=== PATIENT | female | born 1985 | race Caucasian/White ===

== ENCOUNTER 2016-12-04 09:39 | Emergency (ER) | payer OTHER ==
[~2016-12-04] VITALS: Ht 162.6 cm; Wt 77.3 kg
[~2016-12-04 09:39] MED LIST: CITA10TA8 PO; DOXY100C76 PO; POLY335019 PO
[2016-12-04 09:47] VITALS: TEMP 36.3; Ht 162.6 cm; Wt 77.3 kg
[2016-12-04] MEDS ORDERED: RANI150T3 PO (10:01)
[2016-12-04] MEDS ORDERED: KETOROLAC TROMETHAMINE 30 MG/ML VIAL IV STA (10:15)
[2016-12-04] MEDS ORDERED: SODIUM CHLORIDE 0.9% 1000ML 1,000 ML IV STA ×2 (10:15→10:53)
[2016-12-04] MEDS ORDERED: ONDANSETRON INJ 2 MG/ML 2 ML VIAL IV STA (10:15)
[2016-12-04 10:27] LABS: BASO % 0.5 %; BASO ABS # 0.05 K/uL (0-0.2); COMPLETE YES; EOS % 0.3 %; HEMATOCRIT 43.3 % (37-47); IG% 0.3 %; LYMPH % 19.3 %; LYMPH ABS # 1.76 K/uL (1.2-3.4); MEAN CELL VOLUME 96.7 fL (80-100); MEAN CORPUSCULAR HEMOGLOBIN 31.3 pg (25-34); MEAN CORPUSCULAR HGB CONC 32.3 g/dl (32-36); MEAN PLATELET VOLUME 8.7 fL (7.4-10.4); MONO % 4.5 %; NEUT % 75.1 %; PLATELET COUNT 300 K/uL (130-400); RED BLOOD COUNT 4.48 M/uL (4.2-5.4); WHITE BLOOD COUNT 9.13 K/uL (4.8-10.8)
[2016-12-04 10:45] LABS: BUN/CREATININE RATIO 19.7 (10-20); CALCIUM 8.5 mg/dl (8.5-10.1); CREATININE 0.8 mg/dl (0.60-1.20); POTASSIUM 3.4 mmol/L (3.5-5.1)
[2016-12-04 11:22] VITALS: BP 117/65; PULSE 85; O2SAT 100
[2016-12-04] MEDS ORDERED: ONDA4TAB10 SL (11:42)
--- NOTE | 2016-12-04 11:43 | EMERGENCY ROOM VISIT NOTE ---
History First contact with patient: 10:10 Chief Complaint: FLU LIKE SX Stated Complaint: FLU LIKE SYMPTOMS, THROWING UP, HOT & COLD SWEATS History of Present Illness The patient is a 31 year old female who presents to the Emergency Room with complaints of abdominal pain, nausea vomiting and diarrhea. The patient states she woke up this morning at 6 AM with generalized abdominal pain nausea vomiting and has had 3 loose bowel movements. The patient states she is diaphoretic but did not take her temperature. The patient denies any chest pain or shortness of breath. The patient admits that yesterday she was out in the sun all day at a water park and did not stay hydrated. Then last evening she came home and drank a significant amount of alcohol. The patient denies any urinary symptoms of frequency, urgency, dysuria or hematuria. The patient denies any back or flank pain. Review of Systems 10 system review was performed and was negative unless stated otherwise history of present illness. Past Medical/Surgical History Surgical Problems: (1) S/P tubal ligation Family History Hypertension Seizures Social History Smoking Status: Never Smoker Alcohol Use: occasionally Marital Status: Housing Status: lives with family Occupation Status: unemployed Current/Historical Medications Scheduled Citalopram Hydrobromide (Celexa), 10 MG PO DAILY Ranitidine Hcl (Zantac), 150 MG PO DAILY Allergies Coded Allergies: Nickel (Unverified Allergy, Unknown, RASH, 12/04/16) Physical Exam Vital Signs Date Time Temp Pulse Resp B/P (MAP) Pulse Ox O2 Delivery O2 Flow Rate FiO2 12/04/16 11:22 85 18 117/65 100 Room Air 12/04/16 09:47 36.3 69 18 123/81 100 Room Air Physical Exam GENERAL: 31-year-old white female appears in no acute distress. MENTAL Status: Alert and oriented 3. EYES: No icterus noted MOUTH: Mucosa is slightly dry. NECK: Supple, no lymphadenopathy noted. No carotid bruits noted. LUNGS: Clear auscultation without wheezes rales or rhonchi. CARDIAC: Regular rate and rhythm without murmur. Pulses is full and equal throughout. BACK: No CVA tenderness noted. ABDOMEN: Positive bowel sounds all 4 quadrants. Soft, generalized tenderness to palpation without organomegaly or masses. EXTREMITIES: No cyanosis or edema noted. Medical Decision & Procedures Laboratory Results 12/04/16 10:12 Red Blood Count 4.48, Mean Corpuscular Volume 96.7, Mean Corpuscular Hemoglobin 31.3, Mean Corpuscular Hemoglobin Concent 32.3, Mean Platelet Volume 8.7, Neutrophils (%) (Auto) 75.1, Lymphocytes (%) (Auto) 19.3, Monocytes (%) (Auto) 4.5, Eosinophils (%) (Auto) 0.3, Basophils (%) (Auto) 0.5, Neutrophils # (Auto) 6.85, Lymphocytes # (Auto) 1.76, Monocytes # (Auto) 0.41, Eosinophils # (Auto) 0.03, Basophils # (Auto) 0.05 12/04/16 10:12 Test 12/04/16 10:12 White Blood Count 9.13 K/uL (4.8-10.8) Red Blood Count 4.48 M/uL (4.2-5.4) Hemoglobin 14.0 g/dL (12.0-16.0) Hematocrit 43.3 % (37-47) Mean Corpuscular Volume 96.7 fL (80-100) Mean Corpuscular Hemoglobin 31.3 pg (25-34) Mean Corpuscular Hemoglobin Concent 32.3 g/dl (32-36) Platelet Count 300 K/uL (130-400) Mean Platelet Volume 8.7 fL (7.4-10.4) Neutrophils (%) (Auto) 75.1 % Lymphocytes (%) (Auto) 19.3 % Monocytes (%) (Auto) 4.5 % Eosinophils (%) (Auto) 0.3 % Basophils (%) (Auto) 0.5 % Neutrophils # (Auto) 6.85 K/uL (1.4-6.5) Lymphocytes # (Auto) 1.76 K/uL (1.2-3.4) Monocytes # (Auto) 0.41 K/uL (0.11-0.59) Eosinophils # (Auto) 0.03 K/uL (0-0.5) Basophils # (Auto) 0.05 K/uL (0-0.2) RDW Standard Deviation 45.6 fL (36.4-46.3) RDW Coefficient of Variation 13.0 % (11.5-14.5) Immature Granulocyte % (Auto) 0.3 % Immature Granulocyte # (Auto) 0.03 K/uL (0.00-0.02) Anion Gap 14.0 mmol/L (3-11) Est Creatinine Clear Calc Drug Dose 104.4 ml/min Estimated GFR () 115.5 Estimated GFR (Non- 99.6 BUN/Creatinine Ratio 19.7 (10-20) Calcium Level 8.5 mg/dl (8.5-10.1) Total Bilirubin 0.5 mg/dl (0.2-1) Direct Bilirubin 0.1 mg/dl (0-0.2) Aspartate Amino Transf (AST/SGOT) 21 U/L (15-37) Alanine Aminotransferase (ALT/SGPT) 27 U/L (12-78) Alkaline Phosphatase 46 U/L (45-117) Total Protein 7.9 gm/dl (6.4-8.2) Albumin 4.2 gm/dl (3.4-5.0) Lipase 89 U/L (73-393) Medications Administered Medications (Trade) Dose Ordered Sig/Wagner Route Start Time Stop Time Status Last Admin Dose Admin Sodium Chloride 1,000 ml @ 999 mls/hr Q1H1M STAT IV 12/04/16 10:15 12/04/16 11:15 DC 12/04/16 10:27 999 MLS/HR Ondansetron HCl (Zofran Inj) 4 mg NOW STAT IV 12/04/16 10:15 12/04/16 10:17 DC 12/04/16 10:27 4 MG Ketorolac Tromethamine (Toradol Inj) 30 mg NOW STAT IV 12/04/16 10:15 12/04/16 10:17 DC 12/04/16 10:27 30 MG Sodium Chloride 1,000 ml @ 999 mls/hr Q1H1M STAT IV 12/04/16 10:53 12/04/16 11:53 12/04/16 10:56 999 MLS/HR ED Course The patient was evaluated. IV access was obtained. The patient was given Zofran 4 mg IV for nausea and Toradol 30 mg IV for pain. CBC and differential, renal profile, LFTs and lipase levels were ordered. Urinalysis was ordered. The patient was given 1 L normal saline wide-open. Labs are reviewed. Labs are unremarkable except for slightly low potassium. The patient was reevaluated was feeling slightly better. She was given an additional 1 L normal saline wide-open. The patient was reevaluated again was feeling much better. The patient was discharged home in stable condition. Medical Decision Differential diagnoses include reflux, gastritis, gastroenteritis, pancreatitis , cholelithiasis, cholecystitis, appendicitis, mesenteric ischemia, pyelonephritis, urinary tract infection, renal colic, diverticulitis, shingles, bowel obstruction, intussusception, hernia, ovarian torsion, ruptured ovarian cyst, ectopic , . Impression Primary Impression: Viral gastroenteritis Departure Information Dispostion Home / Self-Care Condition GOOD Prescriptions Ondasetron Odt (ZOFRAN ODT) 4 Mg Tab 4 MG SL Q6H for Nausea, #10 TAB Prov: Katja Jacobsen PA-C 12/04/16 Referrals Renea Parisi (PCP) Forms HOME CARE DOCUMENTATION FORM, IMPORTANT VISIT INFORMATION Patient Instructions ED Diet Vomiting Diarrhea, My [facility] Additional Instructions Push fluids. Follow bland diet. Advance diet slowly as tolerated. Take Zofran as needed for nausea. If symptoms persist or worsen, follow-up with your family doctor or return to ER.
== END 2016-12-04 11:50 | disposition home or self-care (01) ==
LOC: C.EDB 09:41 → C.EDC 11:50
DX: A08.4 Viral intestinal infection, unspecified (principal); Z98.51 Tubal ligation status; Z91.09 Other allergy status, other than to drugs and biological substances; Z82.49 Family history of ischemic heart disease and other diseases of the circulatory system; Z82.0 Family history of epilepsy and other diseases of the nervous system

== ENCOUNTER 2017-09-28 20:00 | Emergency (ER) | payer OTHER ==
[~2017-09-28] VITALS: Ht 162.6 cm; Wt 70.7 kg
[~2017-09-28 20:00] MED LIST changes: -DOXY100C76 PO; -POLY335019 PO; +RANI150T3 PO
[2017-09-28 20:07] VITALS: TEMP 36.7; Ht 162.6 cm; Wt 70.7 kg
[2017-09-28] MEDS ORDERED: CITA20TA9 PO (20:47)
[2017-09-28 21:23] LABS: BASO % 0.3 %; BASO ABS # 0.03 K/uL (0-0.2); EOS % 0.2 %; EOS ABS # 0.02 K/uL (0-0.5); HEMATOCRIT 39.3 % (37-47); HEMOGLOBIN 13.3 g/dL (12.0-16.0); IG# 0.02 K/uL (0.00-0.02); LYMPH % 17.7 %; LYMPH ABS # 1.53 K/uL (1.2-3.4); MEAN CELL VOLUME 94.9 fL (80-100); MEAN CORPUSCULAR HEMOGLOBIN 32.1 pg (25-34); MEAN CORPUSCULAR HGB CONC 33.8 g/dl (32-36); MEAN PLATELET VOLUME 8.8 fL (7.4-10.4); MONO % 6.8 %; MONO ABS # 0.59 K/uL (0.11-0.59); NEUT % 74.8 %; NEUT ABS # 6.47 K/uL (1.4-6.5); PLATELET COUNT 270 K/uL (130-400); RED CELL DISTRIBUTION WIDTH SD 44.9 fL (36.4-46.3); WHITE BLOOD COUNT 8.66 K/uL (4.8-10.8)
[2017-09-28] MEDS ORDERED: LORAZEPAM 1 MG TAB SL STA (21:42)
[2017-09-28 21:43] LABS: ALBUMIN 4.3 gm/dl (3.4-5.0); CKMB 0.7 ng/ml (0.5-3.6); TOTAL PROTEIN 7.5 gm/dl (6.4-8.2)
[2017-09-28 21:52] VITALS: BP 125/62; PULSE 71; O2SAT 99
[2017-09-28] MEDS ORDERED: ATV/1 PO (21:56)
[2017-09-28 22:06] LABS: CALCIUM 8.9 mg/dl (8.5-10.1); CREATININE 0.67 mg/dl (0.60-1.20); POTASSIUM 3.2 mmol/L (3.5-5.1)
[2017-09-28] MEDS ORDERED: ATIVAN 1MG HOMEPACK PO ONE (22:15)
--- NOTE | 2017-09-28 23:19 | EMERGENCY ROOM VISIT NOTE ---
History Report prepared by [place]: Nay Jauregui Under the Supervision of: Dr. Musa Downing M.D. First contact with patient: 20:34 Chief Complaint: ANXIETY Stated Complaint: RACING HEART,SWEATING History of Present Illness The patient is a 32 year old female who presents to the Emergency Room for a mental health evaluation. The patient states that she has a history of panic attacks and was on Celexa. She states that she took herself off a year ago, but restarted it two weeks ago. She states she was trying life without it. The patient states that she hasn't been feeling well since 6 days ago when she was staining floors in a closed house. She states that since then she has had a racing heart and the feeling like she is going to catch fire or is on fire. She states that her chest gets a pressure in it and feels like it is burning. She reports that the burning moves into her abdomen and causes her to have diarrhea. The patient states that she starts to sweat, gets numbness in her fingers in both hands, and works herself up so much that she struggles to breathe. She reports that this is similar to her past panic attacks. The patient denies shortness of breath, fevers, current abdominal pain, confusion, chance of , suicidal ideations, homicidal ideations, and taking any extra medications. She notes that she has smoked marijuana daily for the past 16 years. Source of History: patient Onset: 6 days ago Position: other (global) Quality: other (mental health) Timing: other (episode) Associated Symptoms: + diaphoresis, + chest pain, + diarrhea, + numbness, No fevers, No SOB, No abdominal pain Note: The patient complains of her heart racing and struggling to breathe when she is worked up. The patient denies confusion, suicidal ideations, and homicidal ideations. Review of Systems See HPI for pertinent positives & negatives. A total of 10 systems reviewed and were otherwise negative. Past Medical & Surgical Medical Problems: (1) History of panic attacks Surgical Problems: (1) S/P tubal ligation Old medical records were reviewed. Nurse's notes were reviewed and I agree with. Family History Hypertension Seizures Social History Smoking Status: Never Smoker Alcohol Use: occasionally Drug Use: marijuana Marital Status: Housing Status: lives with family Occupation Status: unemployed Current/Historical Medications Scheduled Citalopram Hydrobromide (Celexa), 20 MG PO DAILY Scheduled PRN Lorazepam (Ativan), 1 MG PO Q12 PRN for Anxiety Allergies Coded Allergies: Nickel (Unverified Allergy, Unknown, RASH, 12/04/16) Physical Exam Vital Signs Date Time Temp Pulse Resp B/P (MAP) Pulse Ox O2 Delivery O2 Flow Rate FiO2 09/28/17 21:52 71 18 125/62 99 Room Air 09/28/17 20:07 36.7 83 20 133/83 99 Room Air Physical Exam General: Non-ill appearing young female in no acute distress. HEENT: Normal cephalic atraumatic. Pupils are equal round and reactive to light. Extraocular movements are intact. Oropharynx is pink with moist mucous membranes. No swelling of the mouth lips or tongue. Neck: Supple with a midline trachea. No meningeal signs or stiffness, no JVD or bruits. No Stridor. Chest: Clear to auscultation bilaterally. No wheezes or rhonchi. No increased work of breathing. Heart: regular rate and rhythm. Abdomen: Soft nontender, nondistended without rebound guarding or rigidity. Extremities: No cyanosis clubbing or edema. No calf tenderness or assymetry Spine/Back. Non tender to palpation. No CVA tenderness Skin: Good turgor without rashes. Neurologic exam: Cranial nerves two through 12 are intact. Motor and sensation are intact and symmetrical throughout. Psych: Denies suicidal and homicidal ideations. Normal thought process. Medical Decision & Procedures Laboratory Results 09/28/17 21:00 Red Blood Count 4.14, Mean Corpuscular Volume 94.9, Mean Corpuscular Hemoglobin 32.1, Mean Corpuscular Hemoglobin Concent 33.8, Mean Platelet Volume 8.8, Neutrophils (%) (Auto) 74.8, Lymphocytes (%) (Auto) 17.7, Monocytes (%) (Auto) 6.8, Eosinophils (%) (Auto) 0.2, Basophils (%) (Auto) 0.3, Neutrophils # (Auto) 6.47, Lymphocytes # (Auto) 1.53, Monocytes # (Auto) 0.59, Eosinophils # (Auto) 0.02, Basophils # (Auto) 0.03 09/28/17 21:00 Test 09/28/17 21:00 09/28/17 21:04 White Blood Count 8.66 K/uL (4.8-10.8) Red Blood Count 4.14 M/uL (4.2-5.4) Hemoglobin 13.3 g/dL (12.0-16.0) Hematocrit 39.3 % (37-47) Mean Corpuscular Volume 94.9 fL (80-100) Mean Corpuscular Hemoglobin 32.1 pg (25-34) Mean Corpuscular Hemoglobin Concent 33.8 g/dl (32-36) Platelet Count 270 K/uL (130-400) Mean Platelet Volume 8.8 fL (7.4-10.4) Neutrophils (%) (Auto) 74.8 % Lymphocytes (%) (Auto) 17.7 % Monocytes (%) (Auto) 6.8 % Eosinophils (%) (Auto) 0.2 % Basophils (%) (Auto) 0.3 % Neutrophils # (Auto) 6.47 K/uL (1.4-6.5) Lymphocytes # (Auto) 1.53 K/uL (1.2-3.4) Monocytes # (Auto) 0.59 K/uL (0.11-0.59) Eosinophils # (Auto) 0.02 K/uL (0-0.5) Basophils # (Auto) 0.03 K/uL (0-0.2) RDW Standard Deviation 44.9 fL (36.4-46.3) RDW Coefficient of Variation 13.0 % (11.5-14.5) Immature Granulocyte % (Auto) 0.2 % Immature Granulocyte # (Auto) 0.02 K/uL (0.00-0.02) Anion Gap 11.0 mmol/L (3-11) Est Creatinine Clear Calc Drug Dose 118.5 ml/min Estimated GFR () 136.7 Estimated GFR (Non- 118.0 BUN/Creatinine Ratio 17.4 (10-20) Calcium Level 8.9 mg/dl (8.5-10.1) Total Bilirubin 0.6 mg/dl (0.2-1) Direct Bilirubin 0.2 mg/dl (0-0.2) Aspartate Amino Transf (AST/SGOT) 14 U/L (15-37) Alanine Aminotransferase (ALT/SGPT) 16 U/L (12-78) Alkaline Phosphatase 44 U/L (45-117) Total Creatine Kinase 186 U/L (26-192) Creatine Kinase MB 0.7 ng/ml (0.5-3.6) Creatine Kinase MB Ratio 0.4 (0-3.0) Total Protein 7.5 gm/dl (6.4-8.2) Albumin 4.3 gm/dl (3.4-5.0) Lipase 85 U/L (73-393) Thyroid Stimulating Hormone (TSH) 1.580 uIu/ml (0.300-4.500) Human Chorionic Gonadotropin, Qual NEG (NEG) Bedside Troponin I < 0.030 ng/ml (0-0.045) Laboratory studies as stated above per my review. Medications Administered Medications (Trade) Dose Ordered Sig/Wagner Route Start Time Stop Time Status Last Admin Dose Admin Lorazepam (Ativan Tab) 1 mg NOW STAT SL 09/28/17 21:42 09/28/17 21:43 DC 09/28/17 21:52 1 MG Lorazepam (Ativan 1MG Home Pack) 1 homepack UD ONCE PO 09/28/17 22:15 09/28/17 22:16 DC 09/28/17 22:20 1 HOMEPACK ECG Per My Interpretation Indication: chest pain Rate (beats per minute): 74 Rhythm: normal sinus Findings: no acute ischemic change, no ectopy Comparison ECG Date: 10/12/2011 Change: no significant change ED Course 2034: Past medical records reviewed. The patient was evaluated in room A8, and a complete history and physical examination were performed. 2141: Ordered Lorazepam 1 mg SL. 2158: Upon reevaluation, the patient is resting comfortably. I discussed the results and treatment plan with her. She verbalized agreement of the treatment plan. The patient was discharged home. 2214: Ordered Lorazepam 1 homepack PO. Medical Decision Differential diagnoses include anxiety, arrhythmia, thyroid disease, electrolyte abnormality, metabolic abnormality. This patient comes in as described above. She is complaining of feeling anxious. She had been on anxiety medication with an antidepressant but stopped taking it. She restarted about a week ago. She denies any suicidal or homicidal ideations. EKG does not suggest acute coronary syndrome or arrhythmia. She has no acute electrolyte or metabolic abnormalities. She has nothing to suggest acute toxicologic process, thyroid or diabetes diabetic process. She did get Ativan and is feeling better. She says she had this before and feels exactly the same as when she had anxiety and she used Ativan until her antidepressant started working. I gave her small prescription of Ativan as well as a home pack . I warned her that it could make her drowsy do not take before drinking, driving, working. She should return if: Worsening of symptoms, thoughts of hurting herself or others, any new problems or concerns. She was happy to plan and discharged to home. Medication Reconcilliation Current Medication List: was personally reviewed by me Blood Pressure Screening Patient's blood pressure: Normal blood pressure Blood pressure disposition: Did not require urgent referral Impression Primary Impression: Acute anxiety Scribe Attestation The scribe's documentation has been prepared under my direction and personally reviewed by me in its entirety. I confirm that the note above accurately reflects all work, treatment, procedures, and medical decision making performed by me. Departure Information Dispostion Home / Self-Care Prescriptions Lorazepam (ATIVAN) 1 Mg Tab 1 MG PO Q12 Y for Anxiety, #14 TAB Prov: Musa Downing M.D. 09/28/17 Referrals Renea Parisi (PCP) Forms HOME CARE DOCUMENTATION FORM, IMPORTANT VISIT INFORMATION Patient Instructions My [facility] Additional Instructions Rest. Drink plenty of fluids. May use Ativan 1 mg every 12 hours as needed for anxiety. Ativan may make you drowsy do not take before drinking, driving, working Return if: Worsening of symptoms, thoughts of hurting herself or others, any new problems or concerns Follow-up with yor doctor on Saturday for recheck
== END 2017-09-28 22:28 | disposition home or self-care (01) ==
LOC: C.EDB 20:00 → C.EDA 22:28
DX: F41.9 Anxiety disorder, unspecified (principal); F12.90 Cannabis use, unspecified, uncomplicated